=== PATIENT | male | born 1975 | race Two or more races ===

== ENCOUNTER 2025-01-28 19:50 | Emergency (ER) | payer OTHER ==
[~2025-01-28] VITALS: Ht 177.8 cm; Wt 86.2 kg
[2025-01-28 23:07] VITALS: BP 154/92; TEMP 97.8; O2SAT 94
== END 2025-01-29 00:10 | disposition home or self-care (01) ==
LOC: ER 19:55
DX: M79.644 Pain in right finger(s) (principal)
CPT/HCPCS: 73140-TC